=== PATIENT | female | born 1990 | race American Indian/Alaskan Native ===

== ENCOUNTER 2017-06-01 16:16 | Emergency (ER) | payer OTHER ==
[2017-06-01 18:07] LABS: Basophils % (Auto) 0.8 % (0.0-1.8); Eosinophils % (Auto) 1.3 % (0.0-4.3); Hematocrit 39.4 % (30.3-42.9); Hemoglobin 13.4 gm/dl (10.1-14.3); Mean Corpuscular HGB Conc 34 % (30-34); Mean Corpuscular Hemoglobin 31 pg (28-32); Mean Corpuscular Volume 92 fl (79-97); Platelet Count 358 K/mm3 (140-440); Red Blood Count 4.29 M/mm3 (3.65-5.03); Red Cell Distribution Width 13.5 % (13.2-15.2); White Blood Count 14.9 K/mm3 (4.5-11.0)
--- NOTE | 2017-06-01 19:26 | Ultrasound Report ---
FINAL REPORT PROCEDURE: US OB < = 14 WEEKS FETUS TECHNIQUE: Real-time transabdominal and transvaginal sonography of the uterus, placenta, amniotic fluid, adnexa, and fetus was performed with image documentation. Measurements were obtained to determine age/size. M-mode Doppler was used to document heartbeat. CPT 99737 and 47896 HISTORY: heavy vaginal bleeding. Poss miscarriage COMPARISON: No prior studies are available for comparison. FINDINGS: No evidence of IUP is identified. Findings may be due to missed . Endometrial thickness is 9.2 millimeters. Tiny amount of fluid is seen in the endocervical canal. Right ovary measures 3.5 x 2.1 x 1.8 cm. Left ovary measures 4.4 x 1.9 x 3.0 cm. Follicles are seen in the left ovary. Normal Doppler flow is seen in the ovaries. No free pelvic fluid is seen. No evidence of ectopic is seen. IMPRESSION: No IUP or ectopic is seen. Findings are probably due to missed . Correlation with serial quantitative beta HCG levels is recommended.
--- NOTE | 2017-06-01 19:26 | Ultrasound Report ---
FINAL REPORT PROCEDURE: US OB TRANSVAGINAL TECHNIQUE: Real-time transabdominal and transvaginal sonography of the uterus, placenta, amniotic fluid, adnexa, and fetus was performed with image documentation. Measurements were obtained to determine age/size. M-mode Doppler was used to document heartbeat. CPT 15901 and 50229 HISTORY: heavy vaginal bleeding. Poss miscarriage COMPARISON: No prior studies are available for comparison. FINDINGS: No evidence of IUP is identified. Findings may be due to missed . Endometrial thickness is 9.2 millimeters. Tiny amount of fluid is seen in the endocervical canal. Right ovary measures 3.5 x 2.1 x 1.8 cm. Left ovary measures 4.4 x 1.9 x 3.0 cm. Follicles are seen in the left ovary. Normal Doppler flow is seen in the ovaries. No free pelvic fluid is seen. No evidence of ectopic is seen. IMPRESSION: No IUP or ectopic is seen. Findings are probably due to missed . Correlation with serial quantitative beta HCG levels is recommended.
[2017-06-02] MEDS ORDERED: ZOFRAN ONE (02:27)
[2017-06-02] MEDS ORDERED: DILAUDID ONE (02:28)
--- NOTE | 2017-06-02 02:34 | Emergency Department Report ---
ED HPI - General Chief complaint: Vaginal Bleeding Stated complaint: MISCARRIAGE Time Seen by Provider: 06/01/17 16:49 Source: patient Mode of arrival: Ambulatory Limitations: No Limitations - History of Present Illness MD Complaint: abdominal pain, vaginal bleeding, other -: Sudden (2 days ago) Location: pelvis, abdomen Radiation: suprapubic Severity: severe Severity scale (0 -10): 10 Quality: cramping, stabbing Consistency: constant Improves with: none Worsens with: movement, rest Associated symptoms: nausea/vomiting, vaginal bleeding, abdominal pain Vaginal bleeding: clots :: Yes Last menstrual period: 05/03/17 Pre- care: none - Related Data : 1 Para: 0 Ab: 0 Previous Rx's Medication Instructions Recorded Last Taken Type Oxycodone HCl/Acetaminophen 1 each PO Q6HR PRN #15 tablet 06/02/17 Unknown Rx [Percocet 7.5/325 mg] Allergies Allergy/AdvReac Type Severity Reaction Status Date / Time No Known Allergies Allergy Verified 06/02/17 02:46 ED Review of Systems ROS: Stated complaint: MISCARRIAGE Other details as noted in HPI Comment: All other systems reviewed and negative Constitutional: weakness Respiratory: no symptoms reported Endocrine: no symptoms reported Gastrointestinal: as per HPI, abdominal pain, nausea, vomiting Genitourinary: as per HPI Musculoskeletal: as per HPI ED Past Medical Hx - Past Medical History Previous Medical History?: No - Surgical History Past Surgical History?: No - Family History Family history: hypertension - Social History Smoking Status: Current Some Day Smoker Substance Use Type: Alcohol, Marijuana, Non Opiate Pain - Medications Home Medications: Home Medications Medication Instructions Recorded Confirmed Last Taken Type Oxycodone HCl/Acetaminophen 1 each PO Q6HR PRN #15 tablet 06/02/17 Unknown Rx [Percocet 7.5/325 mg] ED Physical Exam - General Limitations: No Limitations General appearance: alert, in no apparent distress - Head Head exam: Present: atraumatic, normocephalic - Eye Eye exam: Present: normal appearance - ENT ENT exam: Present: mucous membranes dry - Neck Neck exam: Present: normal inspection - Respiratory Respiratory exam: Present: normal lung sounds bilaterally. Absent: respiratory distress - Cardiovascular Cardiovascular Exam: Present: regular rate, normal rhythm. Absent: systolic murmur, diastolic murmur, rubs, gallop - GI/Abdominal GI/Abdominal exam: Present: soft, tenderness (suprapubic tenderness), normal bowel sounds - External exam: Present: normal external exam, bleeding Speculum exam: Present: vaginal bleeding (speculum exam done with nurse Katie in the room, os closed with minimal bleeding noted.; No cervical tenderness. GC Chlamydia wet prep done ) - Extremities Exam Extremities exam: Present: normal inspection - Back Exam Back exam: Present: normal inspection - Neurological Exam Neurological exam: Present: alert, oriented X3 - Psychiatric Psychiatric exam: Present: normal affect, normal mood - Skin Skin exam: Present: warm, dry, intact, normal color. Absent: rash ED Course Vital Signs 06/01/17 06/02/17 17:27 01:04 Temperature 98.5 F 98.3 F Pulse Rate 64 58 L Respiratory 18 18 Rate Blood Pressure 134/88 125/74 O2 Sat by Pulse 99 100 Oximetry - Reevaluation(s) Reevaluation #1: Patient states her pain was doing much better after Dilaudid he states pain went from a 10 to a 4. but Patient states pain is starting to return. Will give her another dose of Dilaudid. 06/02/17 03:30 06/02/17 04:01 Reevaluation #2: Pain at 2. Patient ready for discharge 06/02/17 04:09 ED Medical Decision Making - Lab Data Result diagrams: 06/01/17 17:37 - Medical Decision Making Discussed case with Dr. Potter. Dr. Potter agrees patient can go home And follow-up outpatient. Dr. Potter agrees to see patient in office in 2 days. Stable for discharge. Strict ER instructions given to patient. Discharge and follow-up instruct given the patient. Wet prep negative. GC chlamydia pending. Critical care attestation.: If time is entered above; I have spent that time in minutes in the direct care of this critically ill patient, excluding procedure time. ED Disposition Clinical Impression: Threatened Disposition: DC-01 TO HOME OR SELFCARE Is pt being admited?: No Does the pt Need Aspirin: No Condition: Stable Instructions: Threatened Miscarriage (ED) Additional Instructions: Patient to see [facility] ATTENDANT in 2 days for repeat hCG. Patient to return to ER if condition worsens. If patient unable to see [facility] ATTENDANT for whatever reason patient to return to ER for repeat hCG in 2 days. She is take ibuprofen and Tylenol when necessary for pain. Take prescription meds as directed. Increase water. Prescriptions: Oxycodone HCl/Acetaminophen [Percocet 7.5/325 mg] 1 each PO Q6HR PRN #15 tablet PRN Reason: Pain Referrals: PRIMARY CARE, [Primary Care Provider] - 3-5 Days Time of Disposition: 03:58
[2017-06-02] MEDS ORDERED: ZOFRAN IV ONE (03:42)
[2017-06-02] MEDS ORDERED: DILAUDID IV ONE ×2 (03:42→03:45)
[2017-06-02 04:14] VITALS: BP 108/78
== END 2017-06-02 04:13 | disposition home or self-care (01) ==
LOC: ED 16:16
DX: O20.0 Threatened abortion (principal); F17.200 Nicotine dependence, unspecified, uncomplicated; F12.10 Cannabis abuse, uncomplicated
CPT/HCPCS: 36415; 76801; 76817; 84702; 85025; 86850; 86900; 86901; 87210; 87591; 96374; 96375; 96376; 99284; J1170; J2405

== ENCOUNTER 2018-02-26 09:48 | Emergency (ER) | payer SELFPAY ==
[2018-02-26 11:04] LABS: Bacteria,Urine 1+ /HPF (Negative); Bilirubin,Urine NEG (Negative); Blood,Urine NEG (Negative); Color,Urine Yellow (Yellow); Mucus,Urine FEW /HPF; Protein,Urine <15 mg/dL mg/dL (Negative); Urobilinogen,Urine < 2.0 mg/dL (<2.0)
[2018-02-26 13:12] LABS: HCG Qualitative,Urine Negative (Negative)
--- NOTE | 2018-02-26 13:24 | Emergency Department Report ---
ED Female HPI - General Chief complaint: Urogenital-Female Stated complaint: VAGINAL DISCOMFORT Time Seen by Provider: 02/26/18 12:28 Source: patient Mode of arrival: Ambulatory Limitations: No Limitations - History of Present Illness Initial comments: She presents to the emergency department with the complaint of a yeast infection. Patient states that she's had some white cheese like discharge that started this morning. Patient denies concern for STDs. She denies abdominal pain, chest pain, headache. -: Sudden Location: other (vagina) Radiation: non-radiating Severity: mild Severity scale (0 -10): 1 Quality: other (burning) Consistency: constant Improves with: none Worsens with: none Are you Now?: No Associated Symptoms: denies other symptoms - Related Data Previous Rx's Medication Instructions Recorded Last Taken Type Oxycodone HCl/Acetaminophen 1 each PO Q6HR PRN #15 tablet 06/02/17 Unknown Rx [Percocet 7.5/325 mg] Fluconazole [Diflucan] 100 mg PO QDAY #2 bottle 02/26/18 Unknown Rx Sulfamethoxazole/Trimethoprim 1 each PO BID #10 tablet 02/26/18 Unknown Rx [Bactrim DS TAB] Allergies Allergy/AdvReac Type Severity Reaction Status Date / Time No Known Allergies Allergy Verified 06/02/17 02:46 ED Review of Systems ROS: Stated complaint: VAGINAL DISCOMFORT Other details as noted in HPI Comment: All other systems reviewed and negative Constitutional: denies: chills, fever Eyes: denies: eye pain, eye discharge, vision change ENT: denies: ear pain, throat pain Respiratory: denies: cough, shortness of breath, wheezing Cardiovascular: denies: chest pain, palpitations Endocrine: no symptoms reported Gastrointestinal: denies: abdominal pain, nausea, diarrhea Genitourinary: denies: urgency, dysuria, discharge Musculoskeletal: denies: back pain, joint swelling, arthralgia Skin: denies: rash, lesions Neurological: denies: headache, weakness, paresthesias Psychiatric: denies: anxiety, depression Hematological/Lymphatic: denies: easy bleeding, easy bruising ED Past Medical Hx - Past Medical History Previous Medical History?: No - Social History Smoking Status: Never Smoker Substance Use Type: None - Medications Home Medications: Home Medications Medication Instructions Recorded Confirmed Last Taken Type Oxycodone HCl/Acetaminophen 1 each PO Q6HR PRN #15 tablet 06/02/17 Unknown Rx [Percocet 7.5/325 mg] Fluconazole [Diflucan] 100 mg PO QDAY #2 bottle 02/26/18 Unknown Rx Sulfamethoxazole/Trimethoprim 1 each PO BID #10 tablet 02/26/18 Unknown Rx [Bactrim DS TAB] ED Physical Exam - General Limitations: No Limitations General appearance: alert, in no apparent distress - Head Head exam: Present: atraumatic, normocephalic - Eye Eye exam: Present: normal appearance - ENT ENT exam: Present: mucous membranes moist - Neck Neck exam: Present: normal inspection - Respiratory Respiratory exam: Present: normal lung sounds bilaterally. Absent: respiratory distress, wheezes, rales, rhonchi - Cardiovascular Cardiovascular Exam: Present: regular rate, normal rhythm. Absent: systolic murmur, diastolic murmur, rubs, gallop - GI/Abdominal GI/Abdominal exam: Present: soft, normal bowel sounds. Absent: distended, tenderness - Rectal Rectal exam: Present: deferred - External exam: Present: other (deferred) Speculum exam: Present: other (deferred) Bi-manual exam: Present: other (deferred) - Extremities Exam Extremities exam: Present: normal inspection - Back Exam Back exam: Present: normal inspection - Neurological Exam Neurological exam: Present: alert, oriented X3, CN II-XII intact. Absent: motor sensory deficit - Psychiatric Psychiatric exam: Present: normal affect, normal mood - Skin Skin exam: Present: warm, dry, intact, normal color. Absent: rash ED Course Vital Signs 02/26/18 10:19 Temperature 98.7 F Pulse Rate 68 Respiratory 17 Rate Blood Pressure 117/66 O2 Sat by Pulse 100 Oximetry ED Medical Decision Making - Medical Decision Making Discussed results with patient Critical care attestation.: If time is entered above; I have spent that time in minutes in the direct care of this critically ill patient, excluding procedure time. ED Disposition Clinical Impression: Dysuria Disposition: DC-01 TO HOME OR SELFCARE Is pt being admited?: No Does the pt Need Aspirin: No Condition: Stable Instructions: Dysuria (ED) Additional Instructions: return if worse Prescriptions: Fluconazole [Diflucan] 100 mg PO QDAY #2 bottle Sulfamethoxazole/Trimethoprim [Bactrim DS TAB] 1 each PO BID #10 tablet Referrals: PRIMARY CARE, [Primary Care Provider] - 3-5 Days [facility] [Provider Group] - 3-5 Days Time of Disposition: 13:41
[2018-02-26 13:56] VITALS: BP 122/72
== END 2018-02-26 13:53 | disposition home or self-care (01) ==
LOC: ED 09:48
DX: R30.0 Dysuria (principal)
CPT/HCPCS: 81001; 81025; 99283

== ENCOUNTER 2018-09-08 08:44 | Emergency (ER) | payer SELFPAY ==
[2018-09-08 09:16] VITALS: BP 123/74
[2018-09-08] MEDS ORDERED: DUONEB *Not for PRN Use IH ONE (09:54)
[2018-09-08] MEDS ORDERED: DELTASONE PO ONE (09:54)
[2018-09-08] MEDS ORDERED: CLARITIN PO ONE (09:54)
--- NOTE | 2018-09-08 09:55 | Emergency Department Report ---
Minor Respiratory - HPI Chief Complaint: Upper Respiratory Infection Stated Complaint: FLU SYMPTOMS Duration: 3 Days Pain Location: Chest Severity: mild Minor Respiratory: Yes Rhinorrhea, Yes Sore Throat, Yes Able to Tolerate Fluids, Yes Cough, No Ear Pain, No Sick Contacts, No Hemoptysis, No Chest Pain, No Shortness of Breath, No Fever Other History: Patient is a pleasant 28-year-old -[place] female who has a history of asthma. She comes to the ER today complaining of a 3 day history of cough, congestion she is afebrile on admission. Past medical history asthm. home medications albuterol inhaler as needed ED Review of Systems ROS: Stated complaint: FLU SYMPTOMS Other details as noted in HPI Comment: All other systems reviewed and negative Constitutional: see HPI, chills Eyes: denies: eye pain ENT: as per HPI, throat pain. denies: ear pain Respiratory: see HPI, cough, wheezing. denies: orthopnea Cardiovascular: denies: dyspnea on exertion Gastrointestinal: denies: nausea Genitourinary: denies: urgency Musculoskeletal: denies: back pain Skin: denies: rash Neurological: denies: headache Psychiatric: denies: anxiety ED Past Medical Hx - Past Medical History Hx Asthma: Yes - Surgical History Past Surgical History?: No - Family History Family history: no significant - Social History Smoking Status: Current Every Day Smoker Substance Use Type: None - Medications Home Medications: Home Medications Medication Instructions Recorded Confirmed Last Taken Type Albuterol Sulfate [Ventolin HFA] 2 puff IH Q4H PRN #1 hfa.aer.ad 09/08/18 Unknown Rx Azithromycin [Zithromax Z-JT] 250 mg PO DAILY #6 tablet 09/08/18 Unknown Rx Cetirizine HCl [ZyrTEC] 10 mg PO DAILY #30 capsule 09/08/18 Unknown Rx Fluticasone [Flonase] 1 spray NS QDAY #1 bottle 09/08/18 Unknown Rx predniSONE [Deltasone] 20 mg PO DAILY #5 tablet 09/08/18 Unknown Rx Minor Respiratory Exam - Exam General: Vital signs noted. No distress. Alert and acting appropriately. HEENT: Yes Pharyngeal Erythema, Yes Moist Mucous Membranes, Yes Rhinorrhea, No Pharyngeal Exudates, No Conjuctival Injection, No Frontal Tenderness, No Maxillary Tenderness Ear: Neither TM Bulge, Neither TM Erythema, Neither EAC Pain, Neither EAC Discharge Neck: Yes Supple, No Adenopathy Lungs: Yes Good Air Exchange, Yes Wheezes, Yes Cough, No Ronchi, No Stridor, No Labored Respirations, No Retractions, No Use of Accessory Muscles, No Other Abnormal Lung Sounds Heart: Yes Regular, No Murmur Abdomen: Yes Normal Bowel Sounds, No Tenderness, No Peritoneal Signs Skin: Yes Edema, No Rash Neurologic: Alert and oriented, no deficits. Musculoskeletal: Unremarkable. ED Course Vital Signs 09/08/18 09:15 Temperature 99.1 F Pulse Rate 91 H Respiratory 16 Rate Blood Pressure 123/74 O2 Sat by Pulse 100 Oximetry ED Medical Decision Making - Radiology Data Radiology results: report reviewed, image reviewed NAP - Medical Decision Making CHILLS NO SPUTUM VSS WHEEZING IMPROVED WITH DUONEB DC HOME W DC POC AND FOLLOW UP Vital Signs 09/08/18 09:15 Temperature 99.1 F Pulse Rate 91 H Respiratory 16 Rate Blood Pressure 123/74 O2 Sat by Pulse 100 Oximetry - Differential Diagnosis ASTHMA AE W OR WO INFECTION Critical care attestation.: If time is entered above; I have spent that time in minutes in the direct care of this critically ill patient, excluding procedure time. ED Disposition Clinical Impression: Asthma, URTI (acute upper respiratory infection) Disposition: DC-01 TO HOME OR SELFCARE Is pt being admited?: No Does the pt Need Aspirin: No Condition: Stable Instructions: Asthma (ED) Additional Instructions: HYDRATE WELL WITH WATER MEDS ORDERED FOLLOW UP PCP MOTRIN OR TYLENOL FOR FEVER OVER THE COUNTER DELYSM FOR COUGH DIET TOLERATED Prescriptions: predniSONE [Deltasone] 20 mg PO DAILY #5 tablet Fluticasone [Flonase] 1 spray NS QDAY #1 bottle Albuterol Sulfate [Ventolin HFA] 2 puff IH Q4H PRN #1 hfa.aer.ad PRN Reason: Shortness Of Breath Azithromycin [Zithromax Z-JT] 250 mg PO DAILY #6 tablet Cetirizine HCl [ZyrTEC] 10 mg PO DAILY #30 capsule Referrals: DIONE TIJERINA MD [Primary Care Provider] - 3-5 Days Time of Disposition: 10:06
--- NOTE | 2018-09-08 10:09 | XRay Report ---
ROUTINE CHEST, TWO VIEWS: HISTORY: Cough. The trachea, heart, mediastinal contour, lung bolanos and bony thorax are unremarkable. IMPRESSION: Unremarkable chest x-ray.
== END 2018-09-08 10:28 | disposition home or self-care (01) ==
LOC: ED 08:44
DX: J06.9 Acute upper respiratory infection, unspecified (principal); J45.909 Unspecified asthma, uncomplicated; F17.200 Nicotine dependence, unspecified, uncomplicated
CPT/HCPCS: 71046; 94640; 99283; J7512